=== PATIENT | male | born 1940 | race Caucasian/White ===

== ENCOUNTER → 2016-11-07 | Outpatient (CLI) | payer OTHER | LOC: BHFA 08:30 | PROVIDERS: ATTEND Internal Medicine Cardiovascular Disease | DX: Z01.810 Encounter for preprocedural cardiovascular examination (principal); I48.2 Chronic atrial fibrillation | CPT/HCPCS: 78452; 93017; A9500; J2785 ==

== ENCOUNTER 2016-11-14 07:20 | Inpatient (IN) | payer OTHER ==
[2016-11-08 11:35] LABS: % IMMATURE GRANULYOCYTES 0.5 % (0.0-1.1); ABSOLUTE IMMATURE GRANULOCYTES 0.03 10^3/uL (0.00-0.10); ADD DIFF? NO; ADD MORPH? NO; ADD SCAN? NO; ATYPICAL LYMPHOCYTE FLAG 10 (0-99); FRAGMENT RBC FLAG 0 (0-99); HEMATOCRIT 45.8 % (40.0-51.0); HEMOGLOBIN 15.4 g/dL (13.7-17.5); LEFT SHIFT FLG 0 (0-99); LIPEMIA HEMOLYSIS FLAG 80 (0-99); MEAN CELL HEMOGLOBIN 31.8 pg (27.9-34.1); MEAN CELL HEMOGLOBIN CONCENTR. 33.6 g/dL (32.4-36.7); MEAN CELL VOLUME 94.6 fL (81.5-99.8); MEAN PLATELET VOLUME 10.5 fL (8.7-11.7); PLATELET CLUMPS FLAG 0 (0-99); PLATELET COUNT 213 10^3/uL (150-400); RED BLOOD CELL COUNT 4.84 10^6/uL (4.40-6.38); RED CELL DISTRIBUTION WIDTH 12.4 % (11.5-15.2)
[2016-11-08 12:01] LABS: ANION GAP 12 mEq/L (8-16); CARBON DIOXIDE 21 mEq/l (22-31); CHLORIDE 108 mEq/L (97-110); GLOMERULAR FILTRATION RATE > 60; GLUCOSE 213 mg/dL (70-100); POTASSIUM 5.1 mEq/L (3.5-5.2); SODIUM 141 mEq/L (134-144)
[~2016-11-14 07:20] MED LIST: ACETAMINOPHEN 325 MG TAB PO ONE; BISACODYL 10 MG SUPP PR PRN; CEFAZOLIN 2 GM/DEXTR 100 ML IV ONE; CHLORHEXIDINE GLUC HIBICLENS 118 ML BTL TP ONE; CYCLOBENZAPRINE 10 MG TAB PO PRN; DIPHENOXYLATE/ATROPINE LOMOTIL 1 TAB PO PRN; FAMOTIDINE 20 MG TAB PO ONE; LACTULOSE 20 GM/30 ML UDCUP PO PRN; MAGNESIUM HYDROXIDE 30 ML UDCUP PO PRN; METOCLOPRAMIDE 10 MG/2 ML VIAL IVP PRN; ONDANSETRON 4 MG/2 ML VIAL IVP PRN; ONDANSETRON DISINTEGRATING 4 MG TAB PO PRN; PHARMACY PAIN CONSULT 1 EA MISC PRN; POLYETHYLENE GLYCOL 3350 17 GM PKT PO PRN; PROMETHAZINE HCL 25 MG SUPPR PR PRN; PROMETHAZINE HCL 25 MG/ML VIAL IVP PRN; ROPI/epiNEPH/KETOROLAC/morphINE JOINT COCKTAIL IU ONE; TEMAZEPAM 15 MG CAP PO PRN; diphenhydrAMINE 25 MG CAP PO PRN; oxyCODONE IR 5 MG TAB PO PRN
[2016-11-14] MEDS ORDERED: LR 1,000 ML IV SCH (07:30)
[2016-11-14] MEDS ORDERED: LR 1,000 ML IV ONE (07:57)
[2016-11-14] MEDS ORDERED: LIDOCAINE 1% 5 ML SDV ID PRN (07:57)
[2016-11-14] MEDS ORDERED: FAMOTIDINE 20 MG TAB ONE (08:07)
[2016-11-14] MEDS ORDERED: POLYMYXIN B SULFATE 500,000 UNIT/10 ML SYR IRR ONE (08:07)
[2016-11-14] MEDS ORDERED: ACETAMINOPHEN 325 MG TAB ONE (08:07)
[2016-11-14] MEDS ORDERED: PROPOFOL/EMULSION 500 MG/50 ML BOTTLE IV ONE (09:43)
[2016-11-14] MEDS ORDERED: fentaNYL 100 MCG/2 ML INJ ONE (09:43)
[2016-11-14] MEDS ORDERED: CITRATE DEXTROSE SOLN 500 ML BAG ONE (09:47)
[2016-11-14] MEDS ORDERED: MIDAZOLAM 2 MG/2 ML VIAL ONE (09:54)
--- NOTE | 2016-11-14 12:27 | DX ---
Intraoperative Fluoroscopy of the Left Hip Clinical History: 75-year-old male undergoing a left total hip arthroplasty. Findings: Dr. Migue Verdin used 6.9 seconds of fluoroscopy time, with an exposure dose of 2.1 mGy, and 3 spot matrix intraoperative images were acquired. The first 2 images were obtained at 11:37 a.m . and identify an acetabular prosthesis and a temporary femoral intramedullary jig. The jig was then exchanged for an intramedullary fely that is anatomically aligned, although the caudal margin has been excluded. Impression: Intraoperative fluoroscopy during an ongoing left hip arthroplasty.
--- NOTE | 2016-11-14 13:13 | DX ---
Portable AP Supine Pelvis, at 12:40 p.m. (2 views total) Clinical History: 75-year-old male in the PACU after a left hip arthroplasty. Comparison Studies: CT scan dated August 29, 2016, and intraoperative fluoroscopic images of the lef t hip from earlier this morning. Findings: There is anatomic alignment of the new left hip arthroplasty with appropriate positioning of the femoral and acetabular components. Skin alix are seen peripheral laterally along the left h ip, and also on the right side near the right iliac crest. A surgical drain is also seen on left side . There is moderate degenerative osteoarthrosis of the right hip with femoral and acetabular joint sp avery narrowing and some acetabular subchondral geode formation and sclerosis. The ischial pubic rami a re intact. Impression: 1. Status post left hip arthroplasty, with anatomic alignment. 2. Moderate degenerative osteoarthrosis of the right hip.
[2016-11-14] MEDS: ACETAMINOPHEN 325 MG TAB PO SCH ×3 (13:30→23:16)
[2016-11-14] MEDS: SENNOSIDES/DOCUSATE SODIUM TAB PO SCH ×2 (13:32→20:10)
[2016-11-14] MEDS: ceFAZolin 2 GM/DEXTROSE 100 ML IV SCH ×2 (15:04→21:06)
[2016-11-14] MEDS: METOPROLOL TARTRATE 50 MG TAB PO SCH (20:10)
[2016-11-14] MEDS: FAMOTIDINE 20 MG TAB PO SCH (20:10)
[2016-11-15] MEDS: ACETAMINOPHEN 325 MG TAB PO SCH (05:00)
[2016-11-15 05:01] VITALS: RESP 16
[2016-11-15 05:41] LABS: HEMATOCRIT 35.3 % (40.0-51.0); HEMOGLOBIN 12.1 g/dL (13.7-17.5)
--- NOTE | 2016-11-15 07:13 | SOAPPROG ---
SOAP Progress Note Assessment/Plan: Assessment: s/p left luis enrique Plan: wbat anterior hip precautions ice prn DAILY dressing changes jeremy hose x 2 weeks may shower without bandage no soaking or immersion f/u at two weeks seek attn for drainage, redness, swelling or discharge vaughn baldemareloy today pm 11/15/16 07:11 Subjective: min pain no cp or sob Objective: Vital Signs Temp Pulse Resp BP Pulse Ox 37.1 C 106 H 16 122/73 H 94 11/15/16 05:00 11/15/16 05:00 11/15/16 05:00 11/15/16 05:00 11/15/16 05:00 Laboratory Results 11/15/16 04:24 11/08/16 11:10 11/14/16 11/15/16 11/16/16 05:59 05:59 05:59 Intake Total 2650 Output Total 1175 Balance 1475 dressing intact intact pf,df,ehl toes warm and pink neg homans jorge a xrays stable alignment no fx or lucency ICD10 Worksheet Patient Problems: Problems Problem Status Diagnosed Hip arthritis Acute - ICD10 Problem Qualifiers (1) Hip arthritis
--- NOTE | 2016-11-15 07:13 | PDIAF ---
- Diagnosis Diagnosis: left hip djd Code Status: Full Code - Medication Management Discharge Medications: Medications to Continue on Transfer Apixaban [Eliquis] 5 mg PO BID 11/07/16 [Last Taken 11/11/16] Cholecalciferol Vit D3 [Vitamin D3 2000 units tab (OTC)] 2,000 units PO DAILY [Last Taken 1 Day Ago] Metoprolol Tartrate [Lopressor 50 mg (*)] 75 mg PO BID 11/07/16 [Last Taken 06:00] Vitamin B Complex [Super B-50 Complex] 1 each PO DAILY 11/07/16 [Last Taken ] oxyCODONE IR [Oxycodone Ir (*)] 5 - 10 mg PO Q3HRS PRN #70 tab 11/15/16 [Last Taken Unknown] Discharge Medications: Refer to the Discharge Home Medication list for PRN reason. - Orders Services needed: Physical Therapy Diet Recommendation: no restrictions on diet Diet Texture: Regular Texture Diet Activity/Weight Bearing Restrictions: wbat. anterior hip precautions. ice prn. DAILY dressing changes. jeremy hose x 2 weeks. may shower without bandage. no soaking or immersion. f/u at two weeks. seek attn for drainage, redness, swelling or discharge - Follow Up Care Current Providers and Referrals: Nick Johnson MD [Primary Care Provider] -
[2016-11-15 07:23] VITALS: BP 122/75; PULSE 102; TEMP 98.5; O2SAT 92
[2016-11-15] MEDS: METOPROLOL TARTRATE 50 MG TAB PO SCH (09:05)
[2016-11-15] MEDS: SENNOSIDES/DOCUSATE SODIUM TAB PO SCH (09:07)
[2016-11-15] MEDS: FAMOTIDINE 20 MG TAB PO SCH (09:07)
== END 2016-11-15 12:19 | disposition home health service (06) | DRG 470 ==
LOC: F3N 07:20
PROVIDERS: ADMIT Orthopaedic Surgery; ATTEND Orthopaedic Surgery
PROC: 0SRB04Z Replacement of Left Hip Joint with Ceramic on Polyethylene Synthetic Substitute, Open Approach (ICD-10-PCS; principal; 2016-11-14 09:45)
DX: M16.12 Unilateral primary osteoarthritis, left hip (principal); I48.2 Chronic atrial fibrillation; E11.9 Type 2 diabetes mellitus without complications; I10 Essential (primary) hypertension
CPT/HCPCS: 97116-GP; 97161-GP; 97165-GO; 97535-GO; G8978-GP-CK; G8979-GP-CI; G8980-GP-CI; G8987-GO-CJ; G8988-GO-CJ; G8989-GO-CJ; J0171; J0690; J1885; J2250; J2704; J2795; J3010; J7060

== ENCOUNTER → 2016-12-29 | Outpatient (CLI) | payer OTHER | LOC: BMCIMAGING 08:27 | PROVIDERS: ATTEND Orthopaedic Surgery | DX: Z47.1 Aftercare following joint replacement surgery (principal); Z96.642 Presence of left artificial hip joint ==

== ENCOUNTER → 2017-02-09 | Outpatient (CLI) | payer OTHER | LOC: BMCIMAGING 08:59 | PROVIDERS: ATTEND Orthopaedic Surgery | DX: Z96.642 Presence of left artificial hip joint (principal) ==

== ENCOUNTER → 2017-05-11 | Outpatient (CLI) | payer OTHER | LOC: BMCIMAGING 08:56 | PROVIDERS: ATTEND Orthopaedic Surgery | DX: Z96.642 Presence of left artificial hip joint (principal) ==

== ENCOUNTER → 2017-11-30 | Outpatient (CLI) | payer OTHER | LOC: BHFA 11:30 | PROVIDERS: ATTEND Internal Medicine Cardiovascular Disease | DX: I48.2 Chronic atrial fibrillation (principal); I34.0 Nonrheumatic mitral (valve) insufficiency ==

== ENCOUNTER → 2017-12-25 | Outpatient (CLI) | payer OTHER | LOC: BHFA 10:00 | PROVIDERS: ATTEND Internal Medicine Cardiovascular Disease | DX: I48.91 Unspecified atrial fibrillation (principal) ==